=== PATIENT | male | born 1980 | race Caucasian/White ===

== ENCOUNTER 2018-03-23 09:14 | Emergency (ER) | payer SELFPAY ==
[~2018-03-23] VITALS: Ht 170.2 cm; Wt 85.0 kg
[~2018-03-23 09:14] MED LIST: CEPHALEXIN500 M1 PO
[2018-03-23 09:23] VITALS: TEMP 97.4
[2018-03-23 10:34] LABS: COLLECTION METHOD CLEAN CATCH
[2018-03-23 10:40] LABS: MUCOUS Present /lpf; PH 8 (5-8); SQUAMOUS EPITHELIAL 0-2 /hpf; URINE APPEARANCE Clear; URINE BACTERIA None Seen /hpf; URINE BILIRUBIN Negative (NEGATIVE); URINE BLOOD Negative (NEGATIVE); URINE COLOR Yellow; URINE GLUCOSE Negative (NEGATIVE); URINE KETONE Trace (NEGATIVE); URINE LEUKOCYTE ESTERASE Negative (NEGATIVE); URINE NITRATE Negative (NEGATIVE); URINE PROTEIN(semi-quant) 2+ (NEGATIVE); URINE RBC 0-2 /hpf
[2018-03-23] MEDS ORDERED: PERCOCET 325 MG1 TA2 PO (12:01)
[2018-03-23 12:16] VITALS: BP 142/83; PULSE 81
== END 2018-03-23 12:20 | disposition home or self-care (01) ==
LOC: COL.ER 09:14
PROVIDERS: Nurse Practitioner
DX: N20.1 Calculus of ureter (principal)
CPT/HCPCS: J1170; J1885; J2270; J2405; J2550; J3010; J7030; Q9967

== ENCOUNTER → 2019-09-11 | Outpatient (CLI) | payer SELFPAY ==
[~2019-09-11] MED LIST changes: +PERCOCET 325 MG1 TA2 PO
== END ==
LOC: COL.RAD 13:30
DX: I86.1 Scrotal varices (principal)

== ENCOUNTER → 2021-04-04 | Outpatient (CLI) | payer SELFPAY | LOC: COL.RAD 12:00 | DX: M67.432 Ganglion, left wrist (principal) ==